=== PATIENT | female | born 1975 | race Caucasian/White ===

== ENCOUNTER 2016-11-29 16:40 | Emergency (ER) | payer MEDICAID ==
[~2016-11-29] VITALS: Ht 149.9 cm; Wt 56.3 kg
[2016-11-29] MEDS ORDERED: ONDANSETRON HCL 4 MG/2 ML VIAL IVP ONE (17:30)
[2016-11-29] MEDS ORDERED: SODIUM CHLORIDE 0.9% 1,000 ML IV ONE ×2 (17:30→19:00)
[2016-11-29] MEDS ORDERED: LORazepam 2 MG/ML VIAL IVP ONE ×2 (17:30→17:45)
[2016-11-29] MEDS ORDERED: HYDROmorphone 2 MG/ML SYRINGE IVP ONE ×3 (17:30→19:00)
[2016-11-29 19:39] VITALS: BP 115/65
== END 2016-11-29 19:57 | disposition home or self-care (01) ==
LOC: EMS 16:42
DX: G43.909 Migraine, unspecified, not intractable, without status migrainosus (principal)
CPT/HCPCS: 70450; 96361; 96374; 96375; 96376; 99285; J1170; J2060; J2405; J7030